=== PATIENT | female | born 1980 | race Caucasian/White ===

== ENCOUNTER 2019-01-08 20:31 | Emergency (ER) | payer MEDICAID ==
[~2019-01-08] VITALS: Ht 167.6 cm; Wt 66.0 kg
[2019-01-08 21:46] LABS: HEMATOCRIT 35.8 % (37.0-47.0); HEMOGLOBIN 11.7 g/dl (12.0-16.0); IMMATURE GRANULOCYTES 0.3 % (0.0-5.0); MEAN CELL VOLUME 86.9 fL CALC (80.0-100.0); MEAN CORPUSCULAR HGB 28.4 pG CALC (26.0-32.0); MEAN CORPUSCULAR HGB CONC 32.7 g/L CALC (32.0-36.0); NEUT# 4.82 thou/uL (2.00-7.15); RED BLOOD COUNT 4.12 mill/uL (4.20-5.60); RED CELL DISTRI WIDTH 15.4 % (11.5-15.5)
[2019-01-08 21:50] LABS: URINE BILIRUBIN - DIPSTICK NEGATIVE (NEGATIVE); URINE BLOOD DIPSTICK NEGATIVE (NEGATIVE); URINE COLOR YELLOW; URINE GLUCOSE - DIPSTICK NEGATIVE (NEGATIVE); URINE KETONE NEGATIVE (NEGATIVE); URINE LEUK ESTERASE NEGATIVE (NEGATIVE); URINE NITRITE - DIPSTICK NEGATIVE (Negative); URINE PH 6.5 (4.5-8.0); URINE PROTEIN - DIPSTICK NEGATIVE (NEG-TRACE); URINE SPECIFIC GRAVITY <=1.005; URINE UROBILINOGEN - DIPSTICK 0.2 E.U./dL (0.2)
[2019-01-08 22:04] LABS: ALBUMIN 3.8 g/dL (3.2-5.0); ALKALINE PHOSPHATASE 66 u/l (38-126); AMYLASE 55 u/l (30-110); ANION GAP 9 (6-22 (CALC)); BILIRUBIN, TOTAL 0.3 mg/dL (0.0-1.4); BUN 5 mg/dL (7-17); BUN/CREATININE RATIO 7 (12-20 (CALC)); CARBON DIOXIDE 26 mmol/l (22-30); CHLORIDE 107 mmol/l (95-108); CREATININE 0.7 mg/dL (0.5-1.0); GFR > 60 ML/MIN (>=60 (CALC)); GFR FOR AFR.AMER. > 60 ML/MIN (>=60 (CALC)); LIPASE 153 u/l (23-300); POTASSIUM 3.7 mmol/l (3.5-5.1); SGOT/AST 35 u/l (14-36); SODIUM 138 mmol/l (137-146); TOTAL PROTEIN 6.8 g/dL (6.3-8.2)
[2019-01-09] MEDS ORDERED: NAPROSYN500 MG PO (00:03)
[2019-01-09 00:10] VITALS: BP 110/70
== END 2019-01-09 00:10 | disposition home or self-care (01) ==
LOC: ED 20:31
PROVIDERS: Emergency Medicine
DX: N83.202 Unspecified ovarian cyst, left side (principal); N83.201 Unspecified ovarian cyst, right side; F17.210 Nicotine dependence, cigarettes, uncomplicated; R10.31 Right lower quadrant pain; R11.0 Nausea

== ENCOUNTER 2019-01-13 19:31 | Emergency (ER) | payer MEDICAID ==
[~2019-01-13] VITALS: Ht 167.6 cm; Wt 72.0 kg
[~2019-01-13 19:31] MED LIST: NAPROSYN500 MG PO
[2019-01-13 20:23] LABS: HEMATOCRIT 36.3 % (37.0-47.0); HEMOGLOBIN 11.6 g/dl (12.0-16.0); IMMATURE GRANULOCYTES 0.4 % (0.0-5.0); MEAN CELL VOLUME 87.7 fL CALC (80.0-100.0); NEUT# 4.12 thou/uL (2.00-7.15); RED BLOOD COUNT 4.14 mill/uL (4.20-5.60); RED CELL DISTRI WIDTH 15.7 % (11.5-15.5)
[2019-01-13 20:25] LABS: URINE BILIRUBIN - DIPSTICK NEGATIVE (NEGATIVE); URINE BLOOD DIPSTICK NEGATIVE (NEGATIVE); URINE COLOR YELLOW; URINE GLUCOSE - DIPSTICK NEGATIVE (NEGATIVE); URINE KETONE NEGATIVE (NEGATIVE); URINE LEUK ESTERASE NEGATIVE (NEGATIVE); URINE NITRITE - DIPSTICK NEGATIVE (Negative); URINE PH 5.5 (4.5-8.0); URINE PROTEIN - DIPSTICK NEGATIVE (NEG-TRACE); URINE SPECIFIC GRAVITY <=1.005; URINE UROBILINOGEN - DIPSTICK 0.2 E.U./dL (0.2)
[2019-01-13 20:40] LABS: ALBUMIN 3.8 g/dL (3.2-5.0); ALKALINE PHOSPHATASE 66 u/l (38-126); AMYLASE 68 u/l (30-110); ANION GAP 11 (6-22 (CALC)); BILIRUBIN, TOTAL 0.4 mg/dL (0.0-1.4); BUN 3 mg/dL (7-17); BUN/CREATININE RATIO 5 (12-20 (CALC)); CARBON DIOXIDE 25 mmol/l (22-30); CHLORIDE 108 mmol/l (95-108); CREATININE 0.5 mg/dL (0.5-1.0); GFR > 60 ML/MIN (>=60 (CALC)); GFR FOR AFR.AMER. > 60 ML/MIN (>=60 (CALC)); LIPASE 128 u/l (23-300); POTASSIUM 3.3 mmol/l (3.5-5.1); SGOT/AST 36 u/l (14-36); SODIUM 140 mmol/l (137-146); TOTAL PROTEIN 6.9 g/dL (6.3-8.2)
[2019-01-13] MEDS ORDERED: TRAMADOL HCL50 MG PO (20:55)
[2019-01-13 21:02] VITALS: BP 101/63
== END 2019-01-13 21:02 | disposition home or self-care (01) ==
LOC: ED 19:31
PROVIDERS: Family Medicine
DX: N94.6 Dysmenorrhea, unspecified (principal); R10.31 Right lower quadrant pain; R10.32 Left lower quadrant pain; N83.202 Unspecified ovarian cyst, left side; N83.201 Unspecified ovarian cyst, right side

== ENCOUNTER 2019-09-16 20:14 | Emergency (ER) | payer MEDICAID ==
[~2019-09-16 20:14] MED LIST changes: +TRAMADOL HCL50 MG PO
[2019-09-16] MEDS ORDERED: MEDDOSEPAK PO (20:43)
[2019-09-16] MEDS ORDERED: TESSALON PERLE100 MG PO (20:43)
[2019-09-16] MEDS ORDERED: AUGMENTIN500TAB PO (20:43)
[2019-09-16 21:00] VITALS: BP 120/79
== END 2019-09-16 21:00 | disposition home or self-care (01) ==
LOC: ED 20:14
DX: J40 Bronchitis, not specified as acute or chronic (principal); H66.92 Otitis media, unspecified, left ear; F17.210 Nicotine dependence, cigarettes, uncomplicated

== ENCOUNTER 2019-10-07 17:32 | Emergency (ER) | payer MEDICAID ==
[~2019-10-07 17:32] MED LIST changes: +AUGMENTIN500TAB PO; +MEDDOSEPAK PO; +TESSALON PERLE100 MG PO
[2019-10-07 18:45] VITALS: BP 111/80
== END 2019-10-07 18:45 | disposition home or self-care (01) ==
LOC: ED 17:32
DX: R09.81 Nasal congestion (principal); F17.210 Nicotine dependence, cigarettes, uncomplicated

== ENCOUNTER 2024-08-15 16:13 | Emergency (ER) | payer SELFPAY ==
[~2024-08-15] VITALS: Ht 167.6 cm; Wt 70.0 kg
[2024-08-15] MEDS ORDERED: OSELTAMIVIR PHOSPHATE 75 MG/TAB CAP PO ONE (18:50)
[2024-08-15] MEDS ORDERED: KETOROLAC TROMETHAMINE 30 MG/ML SDV IM ONE (18:50)
[2024-08-15] MEDS ORDERED: NAPROXEN500 MG PO (19:07)
[2024-08-15] MEDS ORDERED: TAM75CAP PO (19:07)
[2024-08-15 19:10] VITALS: BP 109/67
== END 2024-08-15 19:10 | disposition home or self-care (01) | DRG 153 ==
LOC: ED 16:13
DX: J11.1 Influenza due to unidentified influenza virus with other respiratory manifestations (principal); F17.200 Nicotine dependence, unspecified, uncomplicated; Z20.822 Contact with and (suspected) exposure to COVID-19